=== PATIENT | male | born 1975 | race Two or more races ===

== ENCOUNTER 2022-01-19 07:56 | Emergency (ER) | payer OTHER ==
[~2022-01-19] VITALS: Ht 172.7 cm; Wt 95.3 kg
[2022-01-19] MEDS ORDERED: SINGULAIR4 M1 PO (08:07)
[2022-01-19] MEDS ORDERED: RAYOS1 MG (08:07)
[2022-01-19] MEDS ORDERED: VASOTEC2.5 MG PO (08:07)
[2022-01-19] MEDS ORDERED: SPIRIVA RESPIMAT4 G1 IH (08:07)
[2022-01-19] MEDS ORDERED: LYVISPAH5 MG PO (08:08)
[2022-01-19] MEDS ORDERED: NORVASC2.5 M1 PO (08:08)
[2022-01-19] MEDS ORDERED: ADVAIR 100-501 EACH IH (08:08)
== END 2022-01-19 15:00 | disposition home or self-care (01) ==
LOC: ER 07:56
DX: N20.0 Calculus of kidney (principal); Z87.442 Personal history of urinary calculi